=== PATIENT | male | born 1975 | race Caucasian/White ===

== ENCOUNTER 2017-02-24 00:36 | Emergency (ER) | payer OTHER ==
[~2017-02-24] VITALS: Ht 182.9 cm; Wt 79.4 kg
[2017-02-24] MEDS ORDERED: VENTOLIN HFA18 GM INH (00:58)
[2017-02-24] MEDS ORDERED: PREDNISONE20 MG ORAL (00:58)
[2017-02-24 01:00] VITALS: BP 137/89
[2017-02-24] MEDS ORDERED: Albuterol ud Inhalation HHN ONE (01:00)
[2017-02-24 01:32] VITALS: BP 137/89
--- NOTE | 2017-02-24 03:45 | Emergency Room Report ---
History of Present Illness General Chief Complaint: Asthma Source: Patient Present Illness HPI 41-year-old male with known asthma, nonsmoker, walks in with 2-3 days of chest tightness. States ran out of home Ventolin. Does not have frequent asthma attacks, never intubated or hospitalized for asthma. Denies chest pain, fever chills or cough. Denies recent URI symptoms Allergies: Coded Allergies: No Known Allergies (Unverified , 02/24/17) Patient History Past Medical History: asthma Past Surgical History: none Pertinent Family History: none Social History: Denies: smoking, alcohol use, drug use Immunizations: UTD Reviewed Nursing Documentation: PMH: Agreed, PSxH: Agreed Nursing Documentation-PMH Past Medical History: No History, Except For Hx Asthma: Yes Review of Systems All Other Systems: negative except mentioned in HPI Physical Exam Vital Signs Date Time Temp Pulse Resp B/P (MAP) Pulse Ox O2 Delivery O2 Flow Rate FiO2 02/24/17 00:45 97.5 112 17 137/89 96 Room Air Sp02 EP Interpretation: reviewed, normal General Appearance: normal inspection, well appearing, no apparent distress, alert Head: atraumatic ENT: normal ENT inspection, hearing grossly normal, normal voice Neck: normal inspection, full range of motion, supple, no bony tend Respiratory: normal inspection, no respiratory distress, no retraction, no accessory muscle use, wheezing Cardiovascular #1: regular rate, rhythm, no edema Gastrointestinal: normal inspection, normal bowel sounds, non tender, soft, no guarding, no hernia Genitourinary: no CVA tenderness Musculoskeletal: normal inspection, back normal, normal range of motion, Gayle' s Sign negative Neurologic: normal inspection, alert, responsive, speech normal Psychiatric: normal inspection, judgement/insight normal, mood/affect normal Skin: normal inspection, normal color, no rash Medical Decision Making Diagnostic Impression: Primary Impression: Asthma Qualified Codes: J45.21 - Mild intermittent asthma with (acute) exacerbation ER Course 41-year-old male with mild asthma exacerbation No tachypnea, or hypoxia Wheezing inspiratory and expiratory on exam Patient was given prednisone, was being treated with albuterol nebulizer Then for some reason patient got up and left the ER Patient did not wait for discharge instructions or prescriptions Last Vital Signs Date Time Temp Pulse Resp B/P (MAP) Pulse Ox O2 Delivery O2 Flow Rate FiO2 02/24/17 01:32 82 17 137/89 96 02/24/17 01:29 Room Air 02/24/17 01:00 97.5 Status: improved Disposition: ELOPED Condition: Improved Scripts Prednisone* (PREDNISONE*) 20 Mg Tablet 40 MG ORAL DAILY, #10 TAB Prov: KAJAL BROCK M.D. 02/24/17 Albuterol Sulfate (VENTOLIN HFA) 18 Gm Hfa.aer.ad 2 PUFFS INH EVERY 6 HOURS, #18 GM 0 Refills Prov: KAJAL BROCK M.D. 02/24/17 Referrals: NOT CHOSEN IPA/,REFERRING Patient Instructions: Asthma, Adult KAJAL BROCK M.D. Feb 24, 2017 03:45
== END 2017-02-24 01:25 | disposition home or self-care (01) ==
LOC: EMR 01:12
DX: J45.21 Mild intermittent asthma with (acute) exacerbation (principal)
CPT/HCPCS: 94640; 94664; 99284